=== PATIENT | female | born 1975 | race American Indian/Alaskan Native ===

== ENCOUNTER 2017-11-29 00:35 | Emergency (ER) | payer SELFPAY ==
[2017-11-29 00:52] VITALS: BP 139/79
[2017-11-29] MEDS ORDERED: TYLENOL ONE (00:54)
[2017-11-29] MEDS ORDERED: ZOFRAN ODT ONE (00:57)
[2017-11-29] MEDS ORDERED: TYLENOL PO ONE (00:59)
[2017-11-29] MEDS ORDERED: ZOFRAN ODT PO ONE (00:59)
[2017-11-29 04:25] LABS: HCG Qualitative,Urine Negative (Negative)
[2017-11-29 04:26] LABS: Bacteria,Urine 4+ /HPF (Negative); Bilirubin,Urine NEG (Negative); Blood,Urine LG (Negative); Color,Urine Straw (Yellow); Protein,Urine <15 mg/dL mg/dL (Negative); Urobilinogen,Urine < 2.0 mg/dL (<2.0)
[2017-11-29 04:31] LABS: RBC,Urine > 182.0 /HPF (0.0-6.0); WBC,Urine < 1.0 /HPF (0.0-6.0)
== END 2017-11-29 02:15 | disposition left against medical advice (07) ==
LOC: ED 00:35
DX: R51 Headache (principal); R10.9 Unspecified abdominal pain; Z53.21 Procedure and treatment not carried out due to patient leaving prior to being seen by health care provider
CPT/HCPCS: 81001; 81025; Q0162